=== PATIENT | female | born 1985 | race Caucasian/White ===

== ENCOUNTER → 2019-06-30 | Outpatient (REF) | payer BC | LOC: M LAB LCGH 12:18 | PROVIDERS: ATTEND Obstetrics & Gynecology | DX: Z12.4 Encounter for screening for malignant neoplasm of cervix (principal) ==

== ENCOUNTER 2023-08-21 11:05 | Day surgery (SDC) | payer BC, OTHER ==
[~2023-08-21] VITALS: Ht 157.5 cm; Wt 90.2 kg
[~2023-08-21 11:05] MED LIST: CLON1TAB8 PO; MAGN400C2 PO; NS 1,000 ML IV ONE; PROBCAP14 PO; THERTAB52 PO; VITA100093 PO; [UNRECOGNIZED DRUG - OTHER] PO
[2023-08-21] MEDS ORDERED: LIDOCAINE 2% 100MG/5ML SDV (FOR ANES.) As Ordered ONE (13:07)
[2023-08-21] MEDS ORDERED: propofoL 200 MG/20 ML VIAL As Ordered ONE ×3 (13:07→13:26)
[2023-08-21 13:37] VITALS: TEMP 98.1
[2023-08-21 13:52] VITALS: BP 164/70; O2SAT 99
== END 2023-08-21 14:03 | disposition home or self-care (01) ==
LOC: M OPP 11:05
PROVIDERS: ATTEND Internal Medicine Gastroenterology
DX: Z12.11 Encounter for screening for malignant neoplasm of colon (principal); Z83.719 Family history of colon polyps, unspecified; Z80.0 Family history of malignant neoplasm of digestive organs; K63.5 Polyp of colon; K31.89 Other diseases of stomach and duodenum; K44.9 Diaphragmatic hernia without obstruction or gangrene; Z79.899 Other long term (current) drug therapy; Z88.8 Allergy status to other drugs, medicaments and biological substances